=== PATIENT | male | born 1985 | race Hispanic/Latino ===

== ENCOUNTER 2018-01-31 18:56 | Emergency (ER) | payer OTHER ==
[2018-01-31] MEDS ORDERED: Sodium Chloride 0.9% 1,000 ML IV STA ×2 (20:14)
[2018-01-31 20:28] LABS: BASO % 0.3 % (0.0-2.0); EOS # 0.1 K/uL (0.0-0.7); EOS % 0.6 % (0.0-4.0); HEMOGLOBIN 13.9 g/dL (12.0-18.0); LYMPH # 3.7 K/uL (1.0-4.3); MEAN CELL VOLUME 92.7 fl (80.0-94.0); MEAN CORPUSCULAR HGB CONC 34.6 g/dL (33.0-37.0); MEAN PLATELET VOLUME 8.1 fl (7.2-11.7); MONO # 0.5 K/uL (0.0-0.8); MONO % 5.6 % (0.0-10.0); NEUT # 5.4 K/uL (1.8-7.0); NEUT % 55.5 % (50.0-75.0); NRBC % 0.1 % (0.0-0.0); RBC 4.33 Mil/uL (4.40-5.90); RED CELL DISTRIBUTION WIDTH 12.5 % (11.5-14.5); WHITE BLOOD COUNT 9.7 K/uL (4.8-10.8)
[2018-01-31 20:37] LABS: BLOOD UREA NITROGEN 22 mg/dl (9-20); CALCIUM 9.9 mg/dL (8.4-10.2); GFR NON-AFRICAN AMERICAN > 60
[2018-01-31 20:43] LABS: VENOUS BLOOD GAS BASE EXCESS 1.9 mmol/L (0.0-2.0); VENOUS BLOOD GAS PCO2 50 mmHg (40-60); VENOUS BLOOD GAS PO2 24 mm/Hg (30-55); VENOUS BLOOD PH 7.36 (7.32-7.43)
[2018-01-31] MEDS ORDERED: Morphine 4 MG/ML VIAL ONE ×2 (21:17→23:30)
[2018-01-31 21:34] LABS: INR 1.1; PROTHROMBIN TIME 11.7 Seconds (9.8-13.1)
[2018-01-31 21:37] LABS: PARTIAL THROMBOPLASTIN TIME 29.4 Seconds (25.6-37.1)
--- NOTE | 2018-01-31 22:40 | ED PDOC ---
HPI: Nose Bleed Time Seen by Provider: 01/31/18 19:44 Chief Complaint (Nursing): ENT Problem Chief Complaint (Provider): Epistaxis History Per: Patient History/Exam Limitations: no limitations Onset/Duration Of Symptoms: Hrs Current Symptoms Are (Timing): Still Present Location Of Bleeding: Left Nare Symptoms Have Been: Continuous Anticoagulant/Antiplatlet Use?: No Recent Aspirin Use: No Additional Complaint(s): patient states 2 weeks ago, he had a nasal septum surgery performed by Dr. Austin Weir in [facility]. Patient states since this morning, he had intermittent nose bleed and he called Dr. Weir, who instructed him to apply pressure and if bleeding continues, to got to the nearest ER. Patient states the bleeding became heavier with a constant stream and he had associated dizziness, after which he came to the ER for evaluation. Patient states until now, he did not have any complications from surgery. He denies any history of bleeding disorder , aspirin or NSAIDs use. Patient denies any past medical history. He denies fever, chills, weakness, chest pain or shortness of breath. No other complaints. PMD: None provided ENT: Dr. Austin Weir Past Medical History Reviewed: Historical Data, Nursing Documentation, Vital Signs Vital Signs: Last Vital Signs Temp 97.7 F 01/31/18 19:08 Pulse 93 H 01/31/18 19:08 Resp 20 01/31/18 19:08 BP 135/88 01/31/18 19:08 Pulse Ox 97 01/31/18 19:08 - Medical History PMH: No Chronic Diseases Denies: Chronic Kidney Disease - Surgical History Surgical History: No Surg Hx - Family History Family History: States: No Known Family Hx - Allergies Allergies/Adverse Reactions: Allergies Allergy/AdvReac Type Severity Reaction Status Date / Time No Known Allergies Allergy Verified 01/31/18 19:08 Review of Systems ROS Statement: Except As Marked, All Systems Reviewed And Found Negative Constitutional: Negative for: Weakness ENT: Positive for: Nose Discharge (nose bleed) Cardiovascular: Negative for: Chest Pain Respiratory: Negative for: Shortness of Breath Physical Exam - Reviewed Nursing Documentation Reviewed: Yes Vital Signs Reviewed: Yes - Physical Exam Appears: Positive for: Non-toxic, Uncomfortable (patient noted holding gauze, pinching nose and leaning over bag) Head Exam: Positive for: ATRAUMATIC, NORMAL INSPECTION, NORMOCEPHALIC Skin: Positive for: Diaphoresis, Pallor Eye Exam: Positive for: EOMI, PERRL, Other (conjunctival pallor) ENT: Positive for: Other (heavy, single stream of blood from right nare; no active bleeding left nare.) Neck: Positive for: Normal, Supple Cardiovascular/Chest: Positive for: Regular Rate, Rhythm, Tachycardia Respiratory: Positive for: Normal Breath Sounds Gastrointestinal/Abdominal: Positive for: Normal Exam, Soft Back: Positive for: Normal Inspection Extremity: Positive for: Normal ROM Neurologic/Psych: Positive for: Alert, Oriented. Negative for: Motor/Sensory Deficits - Laboratory Results Result Diagrams: 01/31/18 20:18 01/31/18 20:20 - ECG O2 Sat by Pulse Oximetry: 97 (RA) Pulse Ox Interpretation: Normal Medical Decision Making Medical Decision Making: Impression: Epistaxis following nasal septal surgery Rhino-rocket placed in right nare. Large blood clot seen exiting left nare and trickle of blood noted from left nare. Rhino-rocket placed in left nare. Patient states he feels like he will "pass out." Patient became diaphoretic. Patient was laid flat, placed on a monitor and IV fluids started. Labs sent and attempt made to contact patient's PMD, and ENT. 2019 Dr. Graf, ENT aws consultant returned page. He states he refuses to see the patient. He states he did not perform the surgery and will not see the patient and states the patient should be transferred out. 2047 Dr. Austin Weir ([phone]) called back and states surgery was performed on patient's turbinates and septum and there were no complications with surgeries. He states he spoke with the patient this morning and reports if bleeding controlled by nasal packing and if patient is stable, he should keep the packing in until 02/03/18 and follow up in his office that day. 2114 Patient complains he feels blood is dripping down the back of his throat. Left rhino-rocket noted to have displaced anteriorly, and was replaved. Attempted to evaluate patient's [id number] however patient is gagging and couching with use of tongue depressor; unable to evaluate ooropharynx. 2129 Dr. Graf called stating he will not evaluate patient and if patient needs further evaluation, he will need to be transferred to his PMD. Offered to give Dr. Homar Weir's contact information and e states he did not need it. 2234 Patient is complaining of nausea and bleeding. IV Zofran given. 2248 Patient with an episode of vomiting and states he noticed the left rhino-rocket came out; patient states he noted dripping blood but the flow is not as heavy. Patient observed for 2 minutes without bleeding. Left rhino-rocket replaced. Scribe Attestation: Documented by Brittney Staton, acting as a scribe for Rajwinder Brush MD. Provider Scribe Attestation: All medical record entries made by the Scribe were at my direction and personally dictated by me. I have reviewed the chart and agree that the record accurately reflects my personal performance of the history, physical exam, medical decision making, and the department course for this patient. I have also personally directed, reviewed, and agree with the discharge instructions and disposition. Time: 2299 -- Updated Dr. Weir on patient's current status. Patient appears anxious at this time. 1 mg of Ativan given for symptoms. Time: 0000 -- Patient will stay in the ED overnight. Patient endorsed to Dr. Dejesus who is made area of plan. Patient is comfortable at this time. Girlfriend remains at bedside. No re-occurrence of bleeding present at this time. Pain controlled with morphine. Scribe Attestation: Documented by Davin Dupree acting as a scribe for Kylie Brush MD. Provider Scribe Attestation: All medical record entries made by the Scribe were at my direction and personally dictated by me. I have reviewed the chart and agree that the record accurately reflects my personal performance of the history, physical exam, medical decision making, and the department course for this patient. I have also personally directed, reviewed, and agree with the discharge instructions and disposition. Disposition - Patient ED Disposition Is Patient to be Admitted: Transfer of Care - Disposition Disposition: Transfer of Care Disposition Time: 00:00 Condition: FAIR Forms: [facility] (Armenian) Patient Signed Over To: Devon Dejesus
--- NOTE | 2018-02-01 00:23 | ED PDOC ---
- Laboratory Results Result Diagrams: 02/01/18 04:58 01/31/18 20:20 - ECG O2 Sat by Pulse Oximetry: 97 (RA) Pulse Ox Interpretation: Normal Medical Decision Making Medical Decision Making: Time: 0000 -- Patient endorsed to me by Dr. Brush, pending CBC repeat and re-evaluation. Time: 0700 -- Patient endorsed to Dr. Suazo, pending re-evaluation and ENT disposition after further d/w Dr Cage (patient's ENT) DX Postoperative Epistaxis Scribe Attestation: Documented by Davin Dupree acting as a scribe for Devon Dejesus MD. Provider Scribe Attestation: All medical record entries made by the Scribe were at my direction and personally dictated by me. I have reviewed the chart and agree that the record accurately reflects my personal performance of the history, physical exam, medical decision making, and the department course for this patient. I have also personally directed, reviewed, and agree with the discharge instructions and disposition. Disposition - Clinical Impression Clinical Impression: Epistaxis not due to trauma - POA Present On Arrival: None - Disposition Referrals: [facility] [Outside] Jerson Graf MD [Staff Provider] - Disposition: Transfer of Care Disposition Time: 07:00 Condition: FAIR Additional Instructions: Arrange appointment with Dr. Weir's office for timely followup. Return to the nearest ER if uncontrolled bleeding recurs. Prescriptions: Amoxicillin 875 mg PO BID #14 tablet Forms: [facility] ED School/Work Excuse Patient Signed Over To: Nerissa Suazo
[2018-02-01] MEDS ORDERED: Sodium Chloride 0.9% 1,000 ML IV STA (04:59)
[2018-02-01 05:01] LABS: BASO % 0.1 % (0.0-2.0); EOS % 0.1 % (0.0-4.0); HEMOGLOBIN 12.5 g/dL (12.0-18.0); LYMPH # 1.8 K/uL (1.0-4.3); LYMPH % 14.4 % (20.0-40.0); MEAN CELL VOLUME 93.4 fl (80.0-94.0); MEAN CORPUSCULAR HEMOGLOBIN 31.7 pg (27.0-31.0); MEAN PLATELET VOLUME 8.1 fl (7.2-11.7); MONO # 0.6 K/uL (0.0-0.8); MONO % 4.8 % (0.0-10.0); NEUT # 10.2 K/uL (1.8-7.0); NEUT % 80.6 % (50.0-75.0); RBC 3.94 Mil/uL (4.40-5.90); RED CELL DISTRIBUTION WIDTH 12.4 % (11.5-14.5); WHITE BLOOD COUNT 12.7 K/uL (4.8-10.8)
[2018-02-01] MEDS ORDERED: Morphine 4 MG/ML VIAL ONE (06:20)
[2018-02-01] MEDS ORDERED: Piperacillin/Tazobact 3.375 GM in Sodium Chloride 0.9% 100 ML IV STA (06:27)
[2018-02-01] MEDS ORDERED: Piperacillin/Tazobact 3.375 gm Inj IVPB ONE (07:21)
--- NOTE | 2018-02-01 08:03 | ED PDOC ---
- Laboratory Results Result Diagrams: 02/01/18 04:58 01/31/18 20:20 - ECG O2 Sat by Pulse Oximetry: 97 (RA) Medical Decision Making Medical Decision Making: patient endorsed by Dr. Dejesus for disposition pending contact with ENT (Dr. Austin Weir [phone]) who perform septoplasty on patient in recent weeks. Case d/w Dr. Graf earlier. Advised to reach out to the ENT who performed the surgery to arrange for followup. 9:30a - Dr. Weir answered phone. Briefed on stable hemodynamic status and H/H and platelets. Asked for additional labs (VWF and Factor 8 and bleeding time). Case d/w labs. Bleeding time is no longer done at this hospital. Dr. Weir states he will see patient tomorrow and that he can be discharged on amoxicillin. This information and instructions reviewed with patient and his lady friend at bedside. Expressed understanding. All questions have been addressed. Disposition Doctor Will See Patient In The: Office Counseled Patient/Family Regarding: Diagnosis, Need For Followup, Rx Given - Clinical Impression Clinical Impression: Epistaxis not due to trauma - POA Present On Arrival: None - Disposition Referrals: [facility] [Outside] Jerson Graf MD [Staff Provider] - Disposition: Routine/Home Disposition Time: 09:20 Condition: FAIR Additional Instructions: Arrange appointment with Dr. Weir's office for timely followup. Return to the nearest ER if uncontrolled bleeding recurs. Prescriptions: Amoxicillin 875 mg PO BID #14 tablet Instructions: Nosebleeds Forms: [employer] (Brazilian)
[2018-02-01 08:38] VITALS: RESP 19; TEMP 98
--- NOTE | 2018-02-01 08:57 | RAD ---
Date of service: 01/31/2018 HISTORY: possible admission COMPARISON: No prior. FINDINGS: LUNGS: No active pulmonary disease. PLEURA: No significant pleural effusion identified, no pneumothorax apparent. CARDIOVASCULAR: Normal. OSSEOUS STRUCTURES: No significant abnormalities. VISUALIZED UPPER ABDOMEN: Normal. OTHER FINDINGS: None. IMPRESSION: No active disease.
--- NOTE | 2018-02-01 10:12 | CARD ---
APPROVED REPORT Date of service: 01/31/2018 <Conclusion> Normal sinus rhythm with sinus arrhythmia Minimal voltage criteria for LVH, may be normal variant Borderline ECG
[2018-02-01 12:51] VITALS: BP 130/78; PULSE 78
--- NOTE | 2018-02-01 21:55 | CON ---
Copied To: Jerson Graf MD Attending MD: Jerson Graf MD DATE: 02/01/2018 REASON FOR CONSULTATION: Epistaxis after sinus surgery. HISTORY: This is a 32-year-old male who is status post sinus surgery and septoplasty three weeks ago, began having bleeding from the nose yesterday. The patient presented to the ER and had his nose packed last night. The patient is still reporting that he has mild epistaxis from the front, mostly on the left, on and off. He also has some bloody postnasal drip, which is mild. This is after he had 2.5 cm Rhino Rockets placed on both sides. PAST MEDICAL HISTORY: As noted in the chart by me. MEDICATIONS: As noted in the chart by me. PHYSICAL EXAMINATION: HEENT: Atraumatic, normocephalic. FACE: Good facial movements bilaterally. CONSTITUTIONAL: Well fed, well nourished. COMMUNICATION: Communicates well and appropriately. EXTERNAL NOSE AND EARS: No masses. No lesions. No erythema. No edema. INTERNAL NOSE: Pack placed on both sides. There is a very slight amount of oozing from the nose. ORAL CAVITY AND OROPHARYNX: There is mild bloody postnasal drip. LIPS AND GUMS: No masses. No lesions. No erythema. No edema. NECK: Supple. THYROID: No thyromegaly. No goiter. LYMPH NODES: No lymphadenopathy of the neck. ASSESSMENT: Epistaxis after sinus surgery. PLAN: The doctor who did the surgery was contacted. He asked for the patient to be discharged home and followup as an outpatient. I advised the ER to call his physician who did the surgery and let him know that the patient still has some oozing, and it probably was not a good idea to do that. I recommend the possible ER to ER transfer, so the doctor who did the surgery can see him and possibly take him to the OR and cauterize him since I did not do the surgery, and I am not familiar with the patient's anatomy or with the surgery that was done. I think it is best for the patient to have his bleeding controlled by the doctor who actually did the surgery. Jerson Graf MD
[2018-02-02 00:16] VITALS: O2SAT 97
== END 2018-02-01 12:52 | disposition home or self-care (01) ==
LOC: H.ER 18:56
DX: R04.0 Epistaxis (principal); R42 Dizziness and giddiness; R61 Generalized hyperhidrosis; R11.10 Vomiting, unspecified
CPT/HCPCS: 71045; 80048; 82803; 85025; 85240; 85245; 85246; 85247; 85290; 85610; 85730; 86850; 86900; 93005; 96374; 96375; 96376; 99285; J2060; J2270; J2543; J7030